=== PATIENT | male | born 1960 | race Caucasian/White ===

== ENCOUNTER 2019-11-02 12:00 | Outpatient (CLI) | payer OTHER, SELFPAY ==
[~2019-11-02] VITALS: Ht 167.6 cm; Wt 90.7 kg
[2019-11-09] MEDS ORDERED: CEFAZOLIN SOD 1 GM in D5W 50 ML IV ONE (07:00)
== END 2019-11-02 12:30 | disposition home or self-care (01) ==
LOC: SLB 12:00 → EDSTATUS 11-09 07:30
PROVIDERS: ATTEND Otolaryngology Plastic Surgery within the Head & Neck
DX: Z01.812 Encounter for preprocedural laboratory examination (principal); Z20.828 Contact with and (suspected) exposure to other viral communicable diseases; J32.9 Chronic sinusitis, unspecified; J33.8 Other polyp of sinus; J34.89 Other specified disorders of nose and nasal sinuses
CPT/HCPCS: J0690; J7060; U0003-CS

== ENCOUNTER 2019-11-23 09:07 | Day surgery (SDC) | payer OTHER, SELFPAY ==
[~2019-11-23] VITALS: Ht 167.6 cm; Wt 90.7 kg
[~2019-11-23 09:07] MED LIST: CEFAZOLIN SOD 1 GM in D5W 50 ML IV ONE
[2019-11-23] MEDS ORDERED: MEPERIDINE HCL/PF 25 MG/ML DISP.SYRIN IVP PRN (10:30)
[2019-11-23] MEDS ORDERED: ONDANSETRON HCL 4 MG/2 ML VIAL IVP PRN (10:30)
[2019-11-23] MEDS ORDERED: LR 1,000 ML IV SCH (10:30)
[2019-11-23] MEDS ORDERED: HYDROmorphone 1 MG INJ. 1 MG/ML AMPUL IVP PRN (10:30)
[2019-11-23] MEDS ORDERED: POLYMYXIN 500,000/BACIT.10,000 UNITS in NS IRR 1 L IR ONE (11:31)
[2019-11-23] MEDS ORDERED: DEXAMETHASONE SOD PHOSPHATE 4 MG/ML VIAL ONE (11:58)
[2019-11-23] MEDS ORDERED: NS IRRIG SOLN 1000 ML IR ONE (11:58)
[2019-11-23] MEDS ORDERED: LR 1,000 ML IV.SOLN IV ONE (11:58)
[2019-11-23] MEDS ORDERED: ePHEDrine sulfate 50 MG/ML VIAL ONE (11:58)
[2019-11-23] MEDS ORDERED: LIDOCAINE/EPI 1% 1:100000 20 ML VIAL INJ ONE (11:58)
[2019-11-23] MEDS ORDERED: fentaNYL CITRATE/PF 100 MCG/2 ML AMP ONE (11:58)
[2019-11-23] MEDS ORDERED: SEVOFLURANE 15 MIN GAS INH ONE (11:58)
[2019-11-23] MEDS ORDERED: MIDAZOLAM HCL 5 MG/ML VIAL (VERSED) IV ONE (11:58)
[2019-11-23] MEDS ORDERED: ROCURONIUM BROMIDE 10 MG/ML (ZEMURON) ONE (11:58)
[2019-11-23] MEDS ORDERED: MUPIROCIN 2% TOPICAL OINTMENT 22 GM ONE (11:58)
[2019-11-23] MEDS ORDERED: NEOSTIGMINE METHYLSULFATE 1 MG/ML, 10 ML VIAL ONE (11:58)
[2019-11-23] MEDS ORDERED: SUCCINYLCHOLINE CHLORIDE 20 MG/ML(QUELICIN) ONE (11:58)
[2019-11-23] MEDS ORDERED: ONDANSETRON HCL 4 MG/2 ML VIAL ONE (11:58)
[2019-11-23] MEDS ORDERED: TRIAMCINOLONE ACETONIDE 40 MG/ML ONE (11:58)
[2019-11-23] MEDS ORDERED: PROPOFOL 200MG/ 20ML VIAL (DIPRIVAN) IV ONE (11:58)
[2019-11-23] MEDS ORDERED: HYDROcodone/ACETAMIN 5-325 MG TAB (NORCO/ VICODIN) PO PRN (12:00)
[2019-11-23] MEDS ORDERED: ALBUTEROL SULFATE 0.083% 2.5 MG/3 ML VIAL.NEB INH ONE ×2 (12:30→12:43)
[2019-11-23 13:05] VITALS: BP_SYST 121
== END 2019-11-23 13:56 | disposition still patient (30) ==
LOC: SDS 09:07 → SMU 09:09 → SDS 13:56
PROVIDERS: ATTEND Otolaryngology Plastic Surgery within the Head & Neck
DX: J32.9 Chronic sinusitis, unspecified (principal); J33.8 Other polyp of sinus; J34.89 Other specified disorders of nose and nasal sinuses; E66.01 Morbid (severe) obesity due to excess calories; Z68.32 Body mass index [BMI] 32.0-32.9, adult; J45.909 Unspecified asthma, uncomplicated; Z79.899 Other long term (current) drug therapy; Z20.828 Contact with and (suspected) exposure to other viral communicable diseases
CPT/HCPCS: 31255; 31267; 31276; 31288; 88305; 88311; 94640; A4649; J0330; J0690; J1100; J2250; J2405; J2704; J2710; J3010; J3301; J7060; J7120; J7613; U0003

== ENCOUNTER 2020-12-04 07:52 | Inpatient (IN) | payer OTHER, SELFPAY ==
[~2020-12-04] VITALS: Ht 167.6 cm; Wt 95.3 kg
[2020-12-04] MEDS ORDERED: POLYMYXIN 500,000/BACIT.10,000 UNITS in NS IRR 1 L IR ONE (10:26)
[2020-12-04] MEDS ORDERED: ONDANSETRON HCL 4 MG/2 ML VIAL IVP ONE (10:33)
[2020-12-04] MEDS ORDERED: SUGAMMADEX SODIUM 200 MG/2 ML VIAL IV ONE (10:33)
[2020-12-04] MEDS ORDERED: ROCURONIUM BROMIDE 10 MG/ML (ZEMURON) IV ONE (10:33)
[2020-12-04] MEDS ORDERED: ePHEDrine sulfate 50 MG/ML VIAL IVP ONE (10:33)
[2020-12-04] MEDS ORDERED: PROPOFOL 200MG/ 20ML VIAL (DIPRIVAN) IV ONE (10:33)
[2020-12-04] MEDS ORDERED: BUPIVACAINE /PF 0.25% 30 ML VIAL INJ ONE (10:33)
[2020-12-04] MEDS ORDERED: LR 1,000 ML IV.SOLN IV ONE (10:33)
[2020-12-04] MEDS ORDERED: DEXAMETHASONE SOD PHOSPHATE 4 MG/ML VIAL IVP ONE (10:33)
[2020-12-04] MEDS ORDERED: SEVOFLURANE 15 MIN GAS INH ONE (10:33)
[2020-12-04] MEDS ORDERED: CEFAZOLIN 1 GM IVPB PREMIX 50 ML IV ONE (10:33)
[2020-12-04] MEDS ORDERED: fentaNYL CITRATE/PF 100 MCG/2 ML AMP IVP ONE (10:33)
[2020-12-04] MEDS ORDERED: MIDAZOLAM HCL 5 MG/5 ML VIAL IVP ONE (10:33)
[2020-12-04] MEDS ORDERED: CEFAZOLIN 1 GM IVPB PREMIX 0 ML IV ONE (11:03)
[2020-12-04] MEDS ORDERED: MIDAZOLAM HCL 2 MG/2 ML VIAL (VERSED) IVP PRN (11:15)
[2020-12-04] MEDS ORDERED: MEPERIDINE HCL/PF 25 MG/ML DISP.SYRIN IVP PRN (11:15)
[2020-12-04] MEDS ORDERED: ALBUTEROL SULFATE 0.083% 2.5 MG/3 ML VIAL.NEB INH ONE ×3 (11:15→13:01)
[2020-12-04] MEDS ORDERED: METOCLOPRAMIDE HCL 10 MG/2 ML VIAL IVP PRN (11:15)
[2020-12-04] MEDS ORDERED: LR 1,000 ML IV SCH (11:15)
[2020-12-04] MEDS ORDERED: HYDROmorphone 1 MG/ML INJ. CARTRIDGE IVP PRN ×2 (11:15)
[2020-12-04] MEDS ORDERED: HYDROcodone/ACETAMIN 5-325 MG TAB (NORCO/ VICODIN) PO PRN ×2 (12:00)
[2020-12-04] MEDS ORDERED: LIDOCAINE JECT 2% PF 100 MG/5ML SYRINGE ONE (12:45)
[2020-12-04] MEDS ORDERED: ACETAMINOPHEN 325 MG TABLET PO PRN (13:15)
[2020-12-04 13:50] VITALS: BP_SYST 130
[2020-12-04] MEDS ORDERED: IBUP-1970 PO (14:30)
[2020-12-04] MEDS ORDERED: MONT10TA33 PO (14:30)
[2020-12-04] MEDS ORDERED: ALBMDI INH (14:30)
[2020-12-04] MEDS ORDERED: MOME13HF2 INH (14:30)
[2020-12-04] MEDS ORDERED: ALBU2.5V7 INH (14:30)
[2020-12-04] MEDS: HYDROmorphone 1 MG/ML INJ. CARTRIDGE IVP PRN ×2 (14:40→21:51)
[2020-12-04] MEDS: D5/0.45 NS 1,000 ML IV SCH ×2 (14:41→22:00)
[2020-12-04] MEDS ORDERED: COMMUNICATION ORDER XX PRN (14:45)
[2020-12-04] MEDS ORDERED: ALBUTEROL MDI INHALATION 8 GM INH INH PRN (14:45)
[2020-12-04 16:00] VITALS: BP_SYST 128
[2020-12-04] MEDS: MONTELUKAST 10 MG TABLET PO SCH (18:01)
[2020-12-04] MEDS: ALBUTEROL SULFATE 0.083% 2.5 MG/3 ML VIAL.NEB INH SCH (19:38)
[2020-12-04] MEDS ORDERED: MONTELUKAST 10 MG TABLET PO SCH (21:00)
[2020-12-05] VITALS (7 sets, daily range): BP systolic 115–135
[2020-12-05] MEDS: ALBUTEROL SULFATE 0.083% 2.5 MG/3 ML VIAL.NEB INH PRN (01:42)
[2020-12-05] MEDS: D5/0.45 NS 1,000 ML IV SCH ×2 (01:45→18:37)
[2020-12-05] MEDS: ALBUTEROL SULFATE 0.083% 2.5 MG/3 ML VIAL.NEB INH SCH ×4 (07:14→19:33)
[2020-12-05] MEDS: HYDROmorphone 1 MG/ML INJ. CARTRIDGE IVP PRN ×3 (09:47→21:01)
[2020-12-05] MEDS: MONTELUKAST 10 MG TABLET PO SCH (18:37)
[2020-12-06 01:01] VITALS: BP_SYST 99
[2020-12-06] MEDS: HYDROmorphone 1 MG/ML INJ. CARTRIDGE IVP PRN (03:28)
[2020-12-06] MEDS: ALBUTEROL SULFATE 0.083% 2.5 MG/3 ML VIAL.NEB INH PRN (03:29)
[2020-12-06] MEDS: D5/0.45 NS 1,000 ML IV SCH (03:29)
[2020-12-06] MEDS: ALBUTEROL SULFATE 0.083% 2.5 MG/3 ML VIAL.NEB INH SCH ×2 (07:49→11:58)
[2020-12-06 08:03] VITALS: BP_SYST 123
[2020-12-06 10:58] VITALS: BP_SYST 136
[2020-12-06 12:09] VITALS: BP_SYST 136
== END 2020-12-06 13:12 | disposition home or self-care (01) | DRG 355 ==
LOC: SDS 07:52 → SMU 07:53 → SDS 12-05 17:23 → SMU 12-05 19:18
PROVIDERS: ADMIT Colon & Rectal Surgery; ATTEND Colon & Rectal Surgery
PROC: 0WUF0JZ Supplement Abdominal Wall with Synthetic Substitute, Open Approach (ICD-10-PCS; principal; 2020-12-05)
DX: K42.0 Umbilical hernia with obstruction, without gangrene (principal); J45.909 Unspecified asthma, uncomplicated; Z20.822 Contact with and (suspected) exposure to COVID-19; K66.0 Peritoneal adhesions (postprocedural) (postinfection)
CPT/HCPCS: 87081; 88302; 94640; 94760; C1781; J0690; J1100; J1170; J2250; J2405; J2704; J3010; J3490; J7060; J7120; J7613; U0003